=== PATIENT | female | born 1950 | race Caucasian/White ===

== ENCOUNTER → 2018-07-29 | Outpatient (CLI) | payer MEDICARE ==
[~2018-07-29] MED LIST: AMT50T; METR500T PO; PROP1TAB77 PO; SULF1TAB35 PO
--- NOTE | 2018-07-29 12:12 | Diagnostic Imaging Report ---
INDICATION: Routine screening. Comparison is made with prior mammogram from 11/12/2014. 2-D and 3-D bilateral screening mammography was performed with CAD. Scattered fibroglandular densities are identified bilaterally. The parenchymal pattern is stable. No dominant mass or malignant appearing microcalcifications are seen. There are benign calcifications present. The axillae are unremarkable. IMPRESSION: BI-RADS category 2 No mammographic features suspicious for malignancy are identified. ACR BI-RADS Category 2: Benign findings. Result letter will be mailed to the patient. Note: At least 10% of breast cancer is not imaged by mammography. Dictated by: Dictated on workstation # [id number]
== END ==
LOC: RAD 09:34
PROVIDERS: ATTEND Internal Medicine
DX: Z12.31 Encounter for screening mammogram for malignant neoplasm of breast (principal)
CPT/HCPCS: 77067

== ENCOUNTER 2018-08-15 14:18 | Emergency (ER) | payer MEDICARE, OTHER ==
[~2018-08-15] VITALS: Ht 167.6 cm; Wt 85.3 kg
--- OUTSIDE RECORDS SUMMARY | 2018-08-15 14:24 | XMS REPORT | Continuity of Care Document ---
Demographics Preferred Language Unknown Marital Status Unknown Yazidism Affiliation Unknown Race Unknown Ethnic Group Unknown Author Author [facility] Address Unknown Phone Unavailable Allergies Active Description Code Type Severity Reaction Onset Reported/Identified Relationship to Patient Clinical Status Yes No Known Drug Allergies [id number] Drug Allergy Mild N/A 11/13/2009 Medications There is no data. Problems Date Dx Coded Attending Type Code Diagnosis Diagnosed By 11/13/2009 Ot 558.9 11/13/2009 Ot 599.0 11/13/2009 Ot 789.09 06/14/2012 V06.1 TDAP DX 06/14/2012 V06.1 TDAP DX 07/05/2012 V05.8 ZOSTAVAX DX 07/05/2012 V05.8 ZOSTAVAX DX 09/27/2012 079.99 VIRAL SYNDROME 09/27/2012 786.2 COUGH 09/03/2014 ALEXANDRA LINDSEY ROBERT Brown Ot V58.61 09/03/2014 ALEXANDRA DO ROBERT Brown Ot V58.83 11/30/2014 Ot V76.12 02/07/2015 Ot V76.12 02/07/2015 Ot 780.60 02/07/2015 Ot 786.50 02/07/2015 Ot 733.90 02/07/2015 Ot V58.69 02/07/2015 ALEXANDRA DO, ROBERT Brown Ot V58.61 02/07/2015 ALEXANDRA DO, ROBERT Brown Ot V58.83 02/07/2015 Ot V76.12 02/07/2015 Ot V76.12 02/07/2015 Ot 780.60 02/07/2015 Ot 786.50 02/07/2015 Ot 733.90 02/07/2015 Ot V58.69 02/07/2015 ALEXANDRA DO, ROBERT Brown Ot V58.61 02/07/2015 ALEXANDRA DO, ROBERT Brown Ot V58.83 02/07/2015 Ot V76.12 02/22/2015 KRYS EASON Ot 433.10 02/22/2015 KRYS EASONP Ot 433.30 09/11/2015 Ot V76.12 09/11/2015 Ot 780.60 09/11/2015 Ot 786.50 09/11/2015 Ot 733.90 09/11/2015 Ot V58.69 09/11/2015 ROBERT MORRIS DO Ot V58.61 09/11/2015 ROBERT MORRIS DO Ot V58.83 09/11/2015 Ot V76.12 09/11/2015 KRYS EASON PRESSER HAND Ot 433.10 09/11/2015 KRYS EASON PRESSER HAND Ot 433.30 10/01/2015 ROBERT MORRIS DO Ot Z47.1 10/01/2015 ROBERT MORRIS DO Ot Z96.651 07/29/2018 ROBERT MORRIS DO Ot V58.61 ANTICOAGULANTS,LT,CURRENT USE 07/29/2018 ROBERT MORRIS DO Ot V58.83 ENCOUNTER FOR THERAPEUTIC DRUG MONITORIN 07/29/2018 Ot V76.12 OTH SCREEN MAMMO-MALIGN NEOPLASM OF GRETCHEN 07/29/2018 KRYS EASON PRESSER HAND Ot 433.10 CAROTID ARTERY OCCLUSION W O CEREBRAL IN 07/29/2018 KRYS EASON PRESSER HAND Ot 433.30 MULT BILTRAL ARTERY OCCLUSION WO CEREBRA 07/29/2018 ALEXANDRA LINDSEY ROBERT Brown Ot Z47.1 AFTERCARE FOLLOWING JOINT REPLACEMENT DAVIS 07/29/2018 ALEXANDRA LINDSEY ROBERT Brown Ot Z96.651 PRESENCE OF RIGHT ARTIFICIAL KNEE JOINT 07/29/2018 ZOILA EASON DO Ot Z12.31 ENCNTR SCREEN MAMMOGRAM FOR MALIGNANT NE 08/01/2018 ZOILA EASON DO Ot Z12.31 ENCNTR SCREEN MAMMOGRAM FOR MALIGNANT NE 08/01/2018 ZOILA EASON DO Ot Z12.31 ENCNTR SCREEN MAMMOGRAM FOR MALIGNANT NE 08/01/2018 ZOILA EASON DO Ot Z12.31 ENCNTR SCREEN MAMMOGRAM FOR MALIGNANT NE Procedures Code Description [place] [address] [facility] ([facility]HOUSE) 09/27/2012 Results There is no data. Encounters ACCT No. Visit Date/Time Discharge Status Pt. Type Provider Facility Loc./Unit Complaint [id number] 09/27/2012 08:16:00 09/27/2012 23:59:59 [facility] Outpatient [id number] 07/05/2012 08:42:00 07/05/2012 23:59:59 [facility] Outpatient [id number] 07/29/2018 09:34:00 07/29/2018 23:59:59 CLS Outpatient ZOILA EASON DO Via [facility] RAD SCREENING [id number] 09/11/2015 11:38:00 09/11/2015 23:59:59 CLS Outpatient ALEXANDRA LINDSEYROBERT [facility] S/P RIGHT TKA [id number] 02/07/2015 14:13:00 02/07/2015 23:59:59 CLS Outpatient KRYS EASON [facility] RAD DIZZINESS [id number] 08/09/2014 14:00:00 08/09/2014 23:59:59 CLS Outpatient ALEXANDRA LINDSEY Kevin [facility] TKR, ANTICOAG THERAPY [id number] 11/12/2014 11:36:00 Document Registration [id number] 04/08/2012 11:22:00 Document Registration [id number] 07/08/2011 17:05:00 Document Registration [id number] 05/13/2011 15:36:00 Document Registration [id number] 11/13/2009 17:57:00 Document Registration [email or web address] 02/08/2015 02:01:14 ACT Document Registration
[2018-08-15] MEDS ORDERED: AMIT50TA3 (14:34)
[2018-08-15] MEDS ORDERED: ZOLP5TAB7 (14:34)
[2018-08-15] MEDS ORDERED: CNC1KV (14:34)
[2018-08-15] MEDS ORDERED: TRIA1CAP4 (14:34)
[2018-08-15] MEDS ORDERED: ALPR0.254 (14:34)
[2018-08-15] MEDS ORDERED: ORPHENADRINE 60 MG/2 ML (NORFLEX) AMP IM ONE (14:45)
[2018-08-15] MEDS ORDERED: KETOROLAC 60 MG/2 ML VIAL IM ONE (14:45)
--- NOTE | 2018-08-15 15:13 | Diagnostic Imaging Report ---
PROCEDURE: CT lumbar spine without contrast. TECHNIQUE: Multiple contiguous axial images were obtained through the lumbar spine without the use of intravenous contrast. Sagittal and coronal reformations were then performed. INDICATION: Recent fall. Severe lower back pain. COMPARISON: None. FINDINGS: For the purposes of this exam, last well-formed disc space is denoted the L5-S1 level. Evaluation of the static alignment demonstrates mild grade 1 retrolisthesis at L3-L4 and mild grade 1 anterolisthesis at L4-L5. There is no evidence of jumped facets. Note is also made of mild S-shaped scoliotic deformity of the lumbar spine. Evaluation of the lumbar vertebral body heights demonstrates chronic appearing height loss at L5. Otherwise, lumbar vertebral body heights are maintained. There is, however, acute appearing compression fracture involving the superior endplate of T12. This results in approximately 30% vertebral body height loss. There is mild bulging of the posterior vertebral body wall, superiorly. This results in minimal narrowing of the spinal canal. Note is also made of sclerotic appearance to the anteroinferior corner of T11. This, however, is likely on a degenerative basis. There are multilevel degenerative changes consisting of intervertebral disc height loss with anterior and posterior disc bulge as well as multilevel facet arthropathy and ligamentum flavum laxity. Evaluation of the spinal canal contents is suboptimal given CT modality and lack of intrathecal contrast, but there does appear to be moderate or possibly yymcdbxp-jr-idpwxt spinal canal stenosis at the L4-L5 level and probable moderate stenosis at L3-L4. Evaluation of the pre- and para-vertebral soft tissue structures is unremarkable. Note is made of calcified aortic and arterial atherosclerosis. IMPRESSION: 1. Acute compression fracture involving the superior endplate of T12. Patient may be a candidate for kyphoplasty. 2. Multilevel degenerative changes of the lumbar spine, greatest at the L3-L4 and L4-L5 levels as described above. Dictated by: Dictated on workstation # [id number]
[2018-08-15] MEDS ORDERED: CYCL10TA9 PO (15:37)
[2018-08-15] MEDS ORDERED: ACHD5005 PO (15:37)
--- NOTE | 2018-08-15 15:37 | ED Back Pain ---
General Chief Complaint: Back Problems Stated Complaint: BACK PAIN Nursing Triage Note: PT PRESENTS TO ER WITH COMPLAINT OF LOW BACK PAIN. STATES SHE MISSED A STEP AND FELL LAST WEDNESDAY. Nursing Sepsis Screen: No Definite Risk Source of Information: Patient Exam Limitations: No Limitations History of Present Illness Date Seen by Provider: Aug 15, 2018 Time Seen by Provider: 14:30 Initial Comments Patient is a 67-year-old female who presents to the emergency room with complaints of low back pain after a fall on 08/11/18. She reports that she missed a bottom step causing her to fall, she has had some low back pain ever since. She denies any loss of bowel or bladder, numbness or tingling that radiates to her legs, denies hitting her head, neck or denies any other injuries from the fall. Location: Lumbar Spine Timing/Duration: 3-4 Days Pain/Injury Location: Back Allergies and Home Medications Allergies Coded Allergies: No Known Drug Allergies (Unverified Allergy, Mild, 11/13/09) Past Ucndkwi-Rnmxmi-Fnxitc Hx Patient Social History Alcohol Use: Denies Use Recreational Drug Use: No Smoking Status: Current Everyday Smoker Type Used: Cigarettes Recent Foreign Travel: No Contact w/Someone Who Travel: No Recent Infectious Disease Expo: No Recent Hopitalizations: No Immunizations Up To Date Tetanus Booster (TDap): Less than 5yrs PED Vaccines UTD: Yes Seasonal Allergies Seasonal Allergies: No Past Medical History Surgeries: Yes Hysterectomy, Orthopedic Respiratory: No Cardiac: No 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 oz. 85.798402zl; BMI Method:Stated Progress/Results/Core Measures Results/Orders My Orders Orders - HUNTER WHITE Ct Lumbar Spine Wo (08/15/18 14:39) Ketorolac Injection (Toradol Injection) (08/15/18 14:45) Orphenadrine Injection (Norflex Injectio (08/15/18 14:45) Medications Given in ED Current Medications Medications Dose Ordered Sig/Keenan Route Start Time Stop Time Status Last Admin Dose Admin Ketorolac Tromethamine 60 mg ONCE ONCE IM 08/15/18 14:45 08/15/18 14:46 DC 08/15/18 14:49 60 MG Orphenadrine Citrate 60 mg ONCE ONCE IM 08/15/18 14:45 08/15/18 14:46 DC 08/15/18 14:49 60 MG Vital Signs/I&O 08/15/18 14:27 Temp 97.0 Pulse 87 Resp 20 B/P (MAP) 143/76 (98) Pulse Ox 97 Blood Pressure Mean: 98 Departure Impression Primary Impression: Compression fracture of T12 vertebra Disposition: HOME, SELF-CARE Condition: Stable/Unchanged Departure-Patient Inst. Decision time for Depature: 15:33 Referrals: NAMRATA PATEL WILLIAM J DO (PCP/Family) Primary Care Physician Patient Instructions: Vertebral Compression Fracture (DC) Add. Discharge Instructions: Take medications as directed. Follow-up with your primary care provider within 1 week for recheck. Call Dr. Patel's office today for an appointment time for further evaluation of you compression fracture. Return back to the emergency room for any worsening symptoms or concerns as needed. All discharge instructions reviewed with patient and/or family. Voiced understanding. Scripts Hydrocodone Bit/Acetaminophen (Hydrocodone/Acetaminophen 5/325mg Tablet) 1 Tab Tab 1 EACH PO Q4-6HR PRN for PAIN-MODERATE MDD 10, #20 TAB Prov: HUNTER WHITE 08/15/18 Cyclobenzaprine HCl (Cyclobenzaprine HCl) 10 Mg Tablet 10 MG PO Q8H PRN for SPASMS, #14 TAB Prov: HUNTER WHITE 08/15/18 HUNTER WHITE Aug 15, 2018 15:37
[2018-08-15 15:44] VITALS: BP 143/76
== END 2018-08-15 15:44 | disposition home or self-care (01) ==
LOC: EDUNIT# 14:18 → ER 14:20
DX: S22.080A Wedge compression fracture of T11-T12 vertebra, initial encounter for closed fracture (principal); K21.9 Gastro-esophageal reflux disease without esophagitis; F17.210 Nicotine dependence, cigarettes, uncomplicated; Z90.710 Acquired absence of both cervix and uterus; W10.8XXA Fall (on) (from) other stairs and steps, initial encounter
CPT/HCPCS: 72131

== ENCOUNTER → 2018-09-22 | Outpatient (CLI) | payer MEDICARE, OTHER ==
[~2018-09-22] MED LIST changes: +ACHD5005 PO; +ALPR0.254; +AMIT50TA3; +CNC1KV; +CYCL10TA9 PO; +TRIA1CAP4; +ZOLP5TAB7
--- NOTE | 2018-09-22 16:10 | Diagnostic Imaging Report ---
INDICATION: Osteopenia COMPARISON: 2011 FINDINGS: AP Spine L1-L4: [BMD (g/cm2): 0.945] [T-Score: -2.1] [Z-Score: -1.2] [BMD Previous: 1.085] [BMD % Change: -12.9] LT Hip Neck: [BMD (g/cm2): 0.814] [T-Score: -1.6] [Z-Score: -0.5] LT Hip Total: [BMD (g/cm2):0.815] [T-Score:-1.5] [Z-Score: -0.7] [BMD Previous: .884] [BMD % Change: NA] RT Hip Neck: [BMD (g/cm2):0.884] [T-Score:-1.1] [Z-Score:0.0] RT Hip Total: [BMD (g/cm2):0.839] [T-score:-1.3] [Z-Score:-0.5] [BMD Previous:.890] [BMD % Change:NA] *Indicates significant change from prior examination based on 95% confidence level. World Health Organization criteria for BMD interpretation classify patients as Normal (T-score at or above -1.0), Osteopenic (T-score between -1.0 and -2.5) or Osteoporotic (T-score at or below -2.5). LIMITATIONS AND MODIFICATION: None. FRACTURE RISK (FRAX SCORE): The ten year probability of (%): Major Osteoporotic Fracture: [16] Hip Fracture: [3.3] IMPRESSION: 1. Osteopenia (Low bone mass). 2. Bone Mineral density has decreased by a statistically significant amount, as detailed above. 3. See below National Osteoporosis Foundation guidelines on when to potentially initiate pharmacologic therapy. Based on the National Osteoporosis Foundation Guidelines, pharmacologic treatment should be initiated in any of the following, unless clinical conditions suggest otherwise: * Any patient with prior fragility fracture of the hip or vertebrae. A spine fracture indicates 5X risk for subsequent spine fracture and 2X risk for subsequent hip fracture. * Osteoporosis (T-score <-2.5). * Postmenopausal women and men age 50 and older with low bone mass/osteopenia (T-score between -1.0 and -2.5) by DXA and 10-year major osteoporotic fracture greater than 20% or a 10-year probability of hip fracture greater than 3%. These fracture risks are supplied above in the FRAX score, if applicable. * Clinician judgement and/or patient preferences may indicate treatment for people with 10-year fracture probabilities above or below these levels. Dictated by: Dictated on workstation # [id number]
== END ==
LOC: RAD 09:56
PROVIDERS: ATTEND Internal Medicine
DX: M81.0 Age-related osteoporosis without current pathological fracture (principal); M85.80 Other specified disorders of bone density and structure, unspecified site
CPT/HCPCS: 77080

== ENCOUNTER 2018-10-26 13:08 | Outpatient (CLI) | payer MEDICARE, OTHER ==
[~2018-10-26] VITALS: Ht 167.6 cm; Wt 83.9 kg
[2018-10-26 13:15] VITALS: BP 149/78
[2018-10-26] MEDS ORDERED: ZOLEDRONATE (NON-FORMULARY) 100 ML IV ONE (13:30)
== END 2018-10-26 14:30 | disposition home or self-care (01) ==
LOC: RAD 13:08 → SDC 14:30
PROVIDERS: ATTEND Internal Medicine
DX: M81.0 Age-related osteoporosis without current pathological fracture (principal)

== ENCOUNTER → 2020-11-08 | Outpatient (CLI) | payer MEDICARE, OTHER ==
[~2020-11-08] MED LIST changes: +ALPR.25T; -ALPR0.254
--- NOTE | 2020-11-11 11:11 | Diagnostic Imaging Report ---
INDICATION: Routine screening. Comparison is made with prior mammogram 07/29/2018 and 11/12/2014. 2-D and 3-D bilateral screening mammography was performed with CAD. Both breast are heterogeneously dense, limiting the sensitivity of mammography. Parenchymal pattern is stable. No mass or malignant appearing microcalcifications are seen. Axillae are unremarkable. IMPRESSION: BI-RADS Category 2 No mammographic features suspicious for malignancy are identified. ACR BI-RADS Category 2: Benign findings. Result letter will be mailed to the patient. Note: At least 10% of breast cancer is not imaged by mammography. Dictated by: Dictated on workstation # [id number]
== END ==
LOC: RAD 15:15
PROVIDERS: ATTEND Internal Medicine
DX: Z12.31 Encounter for screening mammogram for malignant neoplasm of breast (principal)
CPT/HCPCS: 77063; 77067

== ENCOUNTER 2021-03-21 19:28 | Emergency (ER) | payer MEDICARE, OTHER ==
[~2021-03-21] VITALS: Ht 167.7 cm; Wt 70.0 kg
[2021-03-21] MEDS ORDERED: fentaNYL INJ 100 MCG/2 ML AMP IVP STA ×2 (19:48→21:56)
[2021-03-21 20:05] LABS: BASOPHILS % (AUTO) 0 % (0-10); EOSINOPHILS % (AUTO) 0 % (0-10); HEMATOCRIT 35 % (35-52); HEMOGLOBIN 12.3 g/dL (11.5-16.0); LYMPHOCYTES # (AUTO) 1.6 10^3/uL (1.0-4.0); LYMPHOCYTES % (AUTO) 14 % (12-44); MEAN CORPUSCULAR HEMOGLOBIN 31 pg (25-34); MEAN CORPUSCULAR HGB CONC 35 g/dL (32-36); MEAN CORPUSCULAR VOLUME 87 fL (80-99); MONOCYTES # (AUTO) 0.7 10^3/uL (0.0-1.0); MONOCYTES % (AUTO) 7 % (0-12); NEUTROPHILS # (AUTO) 8.7 10^3/uL (1.8-7.8); NEUTROPHILS % (AUTO) 78 % (42-75); PLATELET COUNT 278 10^3/uL (130-400); WHITE BLOOD COUNT 11.1 10^3/uL (4.3-11.0)
[2021-03-21 20:16] LABS: PROTHROMBIN TIME PATIENT 13.4 SEC (12.2-14.7)
[2021-03-21 20:22] LABS: ALBUMIN 4.2 GM/DL (3.2-4.5); BILIRUBIN,TOTAL 0.7 MG/DL (0.1-1.0); CALCIUM 8.9 MG/DL (8.5-10.1); CREATININE SERUM 1.1 MG/DL (0.60-1.30); POTASSIUM 3.4 MMOL/L (3.6-5.0); TOTAL PROTEIN 6.9 GM/DL (6.4-8.2)
--- NOTE | 2021-03-21 21:21 | Diagnostic Imaging Report ---
EXAMINATION: Right tibia and fibular radiographs, 2 views, 4 images. COMPARISON: None. HISTORY: 70-year-old female, fall. Leg pain. FINDINGS: There is a displaced right distal femoral fracture in the region of the femoral component of the right total knee prosthesis. There is a knee joint effusion with fat/fluid level consistent with an intra-articular fracture. The patella appears normally positioned. There is no identified acute fracture specifically involving the right tibia or fibula. IMPRESSION: 1. Displaced distal femoral fracture centered in the region of the knee prosthesis. There is a large knee joint effusion with fat/fluid level consistent with intra-articular fracture. 2. No identified acute fracture specifically of the right tibia or fibula. Dictated by: Dictated on workstation # [id number]
--- NOTE | 2021-03-21 21:21 | Diagnostic Imaging Report ---
EXAMINATION: Chest radiograph, portable AP view. DATE: 03/21/2021 8:42 PM INDICATION: 70-year-old female, fall. Chest pain. COMPARISON: None. FINDINGS: Heart size and mediastinal contours are unremarkable. There is no identified pneumothorax. There is no large pleural effusion. There is no identified focal airspace consolidation. There is no identified significantly displaced rib fracture. There are prior kyphoplasty changes of T12. IMPRESSION: No identified acute cardiopulmonary abnormality. Dictated by: Dictated on workstation # [id number]
--- NOTE | 2021-03-21 21:22 | Diagnostic Imaging Report ---
EXAMINATION: Right knee radiographs, 3 views. COMPARISON: None. HISTORY: 70-year-old female, knee pain. Fall. FINDINGS: There is a displaced right distal femoral fracture involving at least the metaphysis centered in the region of the femoral component of the knee prosthesis. There is a large right knee joint effusion with fat/fluid level consistent with an intra-articular fracture. The hardware itself appears intact. The patella appears unremarkable in position. IMPRESSION: 1. Displaced distal femoral fracture centered in the region of the femoral component of the knee prosthesis with involvement of the metaphysis and findings consistent with intra-articular fracture extension given the presence of a large right knee joint effusion with fat/fluid level. Dictated by: Dictated on workstation # [id number]
--- NOTE | 2021-03-21 21:23 | Diagnostic Imaging Report ---
EXAMINATION: Right femur, 2 views, 4 images. COMPARISON: None. HISTORY: 70-year-old female, right femur pain. Fall. FINDINGS: The right hip is not dislocated. There is no joint space loss of the right hip, osteophyte formation, or subchondral cystic change. There is a displaced right femoral fracture involving at least the distal femoral metaphysis with evidence of intra-articular fracture extension manifested by a large right knee joint effusion with a fat fluid level. There is no identified more proximally located fracture of the right femur. IMPRESSION: 1. Displaced right femoral fracture centered in the region of the femoral component of the knee prosthesis with evidence of intra-articular fracture extension manifested by a large knee joint effusion with fat/fluid level. 2. No identified more proximally located fracture of the right femur. Dictated by: Dictated on workstation # [id number]
--- NOTE | 2021-03-21 21:24 | Diagnostic Imaging Report ---
EXAMINATION: Pelvis, single view. COMPARISON: None. HISTORY: 70-year-old female, pelvic pain. FINDINGS: The pubic symphysis and sacroiliac joints are normally aligned bilaterally. The hips are not obviously dislocated. There is no identified acute fracture. There are degenerative changes of the lower lumbar spine. IMPRESSION: No identified acute bony abnormality of the pelvis. Dictated by: Dictated on workstation # [id number]
[2021-03-21] MEDS ORDERED: HYDR-34 PO (22:10)
--- NOTE | 2021-03-21 22:10 | ED Lower Extremity ---
General Chief Complaint: Lower Extremity Stated Complaint: FALL/R LEG INJ/PREV KNEE REPLACEMENT Nursing Triage Note: Pt arrival by wheelchair with complaint of R. leg pain secondary to fall. Pt has deformity to lower right leg just below knee, and pain to right femur and pelvis. Source: patient History of Present Illness Date Seen by Provider: Mar 21, 2021 Time Seen by Provider: 19:42 Initial Comments PT ARRIVES VIA POV FROM HOME, NEEDS WHEELCHAIR ON ARRIVAL PT STATES JUST PRIOR TO ARRIVAL, SHE WAS WALKING IN HER YARD AND HER DOG RAN INTO HER RIGHT KNEE AND SHE FELL BACKWARDS, LANDING ON HER BUTTOCKS ON THE GROUND C/O SEVERE RIGHT KNEE PAIN--STATES THIS IS WHERE THE DOG RAN INTO HER DENIES BACK OR BUTTOCKS PAIN DENIES HIP PAIN DID NOT HIT HEAD AND NO LOSS OF CONSCIOUSNESS NO NECK PAIN NO PARESTHESIAS OR MOTOR DEFICITS DENIES ANY OTHER INJURIES OR AREAS OF PAIN PT HAS HAD PRIOR RIGHT TOTAL KNEE REPLACEMENT BY DR. MORRIS PCP: DR. EASON ORTHOPEDIC SURGEON: DR. MORRIS Allergies and Home Medications Allergies Coded Allergies: No Known Drug Allergies (Unverified , 11/13/09) Home Medications Cyclobenzaprine HCl 10 Mg Tablet, 10 MG PO Q8H PRN for SPASMS Prescribed by: HUNTER WHITE on 08/15/18 1537 Hydrocodone Bit/Acetaminophen 1 Tab Tab, 1 EACH PO Q4-6HR PRN for PAIN-MODERATE Prescribed by: HUNTER WHITE on 08/15/18 1537 Hydrocodone Bit/Acetaminophen 1 Ea Tablet, 1-2 EA PO Q4-6 PRN for PAIN Prescribed by: LORELEI CHARLES on 03/21/21 2210 Patient Home Medication List Home Medication List Reviewed: Yes Review of Systems Constitutional: no symptoms reported Respiratory: no symptoms reported Cardiovascular: no symptoms reported Gastrointestinal: no symptoms reported Genitourinary: no symptoms reported Musculoskeletal: see HPI Skin: no symptoms reported Psychiatric/Neurological: No Symptoms Reported Past Kenkpxe-Gdfbln-Wwdzhe Hx Patient Social History Tobacco Use?: Yes (SMOKES 2 PPD) Tobacco type used: Cigarettes Smoking Status: Current Everyday Smoker Use of E-Cig and/or Vaping dev: No Substance use?: No Alcohol Use?: No Pt feels they are or have been: No Immunizations Up To Date Tetanus Booster (TDap): Less than 5yrs PED Vaccines UTD: Yes Influenza Vaccine Up-to-Date: No; Not Current Second COVID19 Vaccination Luis: 10/20/20 COVID19 Vaccine Pharm Spec: Lydia Seasonal Allergies Seasonal Allergies: No Past Medical History Surgery/Hospitalization HX: BILATERAL TOTAL KNEE REPLACEMENTS HYSTERECTOMY KYPHOPLASTIES Surgeries: Yes Hysterectomy, Joint Replacement, Orthopedic Respiratory: No Cardiac: Yes Chronic Edema/Swelling 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 0.0oz. [id number]; 24.00 BMI Method:Stated General Appearance: WD/WN Neck: non-tender, full range of motion, normal inspection Cardiovascular: normal peripheral pulses, regular rate, rhythm, no murmur Respiratory: chest non-tender, normal breath sounds, no respiratory distress, no accessory muscle use Gastrointestinal: normal bowel sounds, non tender, soft Hips: bilateral hip non-tender Legs: left leg non-tender, left leg normal inspection, left leg normal range of motion, left leg no evidence of injury; right leg other (TENDERNESS FROM RIGHT MID FEMUR AREA, DOWN TO RIGHT MID TIB-FIB AREA, WITH MARKED TENDERNESS TO RIGHT KNEE) Knees: left knee normal inspection; right knee other (SIGNIFICANT SWELLING TO KNEE, UNABLE TO MOVE KNEE DUE TO PAIN) Ankles: bilateral ankle non-tender, bilateral ankle normal inspection Feet: bilateral foot non-tender, bilateral foot normal inspection, bilateral foot normal range of motion, bilateral foot other (STRONG PEDAL PULSES BILATERALLY; TRACE PEDAL EDEMA BILATERALLY; DISTAL SENSORY/MOTOR/VASCULAR INTACT) Neurologic/Tendon: normal sensation, normal motor functions, normal tendon functions Neurologic/Psychiatric: mechanical adjuster II-XII nml as tested, no motor/sensory deficits, alert, oriented x 3 Skin: normal color, warm/dry Procedures/Interventions Splinting and Joint Reduction : Casa wrap: Yes Immobilizers: Flexion Limit Knee Long Ordered: Other (PT HAS A WALKER AT HOME) Progress/Results/Core Measures Results/Orders Lab Results Laboratory Tests Test 03/21/21 19:58 03/21/21 21:45 Range/Units White Blood Count 11.1 H 4.3-11.0 10^3/uL Red Blood Count 4.01 3.80-5.11 10^6/uL Hemoglobin 12.3 11.5-16.0 g/dL Hematocrit 35 35-52 % Mean Corpuscular Volume 87 80-99 fL Mean Corpuscular Hemoglobin 31 25-34 pg Mean Corpuscular Hemoglobin Concent 35 32-36 g/dL Red Cell Distribution Width 12.8 10.0-14.5 % Platelet Count 278 130-400 10^3/uL Mean Platelet Volume 9.0 9.0-12.2 fL Immature Granulocyte % (Auto) 1 % Neutrophils (%) (Auto) 78 H 42-75 % Lymphocytes (%) (Auto) 14 12-44 % Monocytes (%) (Auto) 7 0-12 % Eosinophils (%) (Auto) 0 0-10 % Basophils (%) (Auto) 0 0-10 % Neutrophils # (Auto) 8.7 H 1.8-7.8 10^3/uL Lymphocytes # (Auto) 1.6 1.0-4.0 10^3/uL Monocytes # (Auto) 0.7 0.0-1.0 10^3/uL Eosinophils # (Auto) 0.0 0.0-0.3 10^3/uL Basophils # (Auto) 0.0 0.0-0.1 10^3/uL Immature Granulocyte # (Auto) 0.1 0.0-0.1 10^3/uL Prothrombin Time 13.4 12.2-14.7 SEC INR Comment 1.0 0.8-1.4 Activated Partial Thromboplast Time 27 24-35 SEC Sodium Level 127 L 135-145 MMOL/L Potassium Level 3.4 L 3.6-5.0 MMOL/L Chloride Level 92 L 98-107 MMOL/L Carbon Dioxide Level 22 21-32 MMOL/L Anion Gap 13 5-14 MMOL/L Blood Urea Nitrogen 20 H 7-18 MG/DL Creatinine 1.10 0.60-1.30 MG/DL Estimat Glomerular Filtration Rate 49 BUN/Creatinine Ratio 18 Glucose Level 125 H 70-105 MG/DL Calcium Level 8.9 8.5-10.1 MG/DL Corrected Calcium 8.7 8.5-10.1 MG/DL Total Bilirubin 0.7 0.1-1.0 MG/DL Aspartate Amino Transf (AST/SGOT) 22 5-34 U/L Alanine Aminotransferase (ALT/SGPT) 32 0-55 U/L Alkaline Phosphatase 83 40-136 U/L Total Protein 6.9 6.4-8.2 GM/DL Albumin 4.2 3.2-4.5 GM/DL SARS-CoV-2 RNA (RT-PCR) Not Detected Not Detecte My Orders Orders - LORELEI CHARLES DO Ed Iv/Invasive Line Start (03/21/21 19:48) Cbc With Automated Diff (03/21/21 19:48) Comprehensive Metabolic Panel (03/21/21 19:48) Protime With Inr (03/21/21 19:48) Partial Thromboplastin Time (03/21/21 19:48) Fentanyl Inj (Sublimaze Injection) (03/21/21 19:48) Chest 1 View, Ap/Pa Only (03/21/21 19:48) Femur, Right, 2 Views (03/21/21 19:48) Tibia/Fibula, Right, 2 Views (03/21/21 19:48) Knee, Right, 3 Views (03/21/21 19:48) Pelvis (03/21/21 19:48) Catheter(Urinary) Insert & Ass 03,15 (03/21/21 21:31) Covid 19 Inhouse Test (03/21/21 21:31) Casa Bandage (03/21/21 21:56) Walker (03/21/21 21:56) Knee Immobilizer (03/21/21 21:56) Flexion Limit Knee (03/21/21 21:56) Fentanyl Inj (Sublimaze Injection) (03/21/21 21:56) Rx-Hydrocodone/Apap 5-325 Mg (Rx-Vicodin (03/21/21 22:15) Medications Given in ED Current Medications Medications Dose Ordered Sig/Keenan Route Start Time Stop Time Status Last Admin Dose Admin Acetaminophen/ Hydrocodone Bitart 1 ea Q4H PRN PO 03/21/21 22:15 03/21/21 23:40 DC 03/21/21 22:38 1 EA Vital Signs/I&O 03/21/21 03/21/21 20:02 23:38 Temp 36.7 Pulse 82 76 Resp 20 18 B/P (MAP) 140/75 (96) 156/91 Pulse Ox 97 97 O2 Delivery Room Air Room Air Blood Pressure Mean: 96 Diagnostic Imaging Comments XRAYS--ALL PER RADIOLOGIST REPORTS AT 2122 PELVIS-FINDINGS: The pubic symphysis and sacroiliac joints are normally aligned bilaterally. The hips are not obviously dislocated. There is no identified acute fracture. There are degenerative changes of the lower lumbar spine. IMPRESSION: No identified acute bony abnormality of the pelvis. RIGHT FEMUR-- IMPRESSION: 1. Displaced right femoral fracture centered in the region of the femoral component of the knee prosthesis with evidence of intra-articular fracture extension manifested by a large knee joint effusion with fat/fluid level. 2. No identified more proximally located fracture of the right femur. RIGHT KNEE--IMPRESSION: 1. Displaced distal femoral fracture centered in the region of the femoral component of the knee prosthesis with involvement of the metaphysis and findings consistent with intra-articular fracture extension given the presence of a large right knee joint effusion with fat/fluid level. RIGHT TIB-FIB-- IMPRESSION: 1. Displaced distal femoral fracture centered in the region of the knee prosthesis. There is a large knee joint effusion with fat/fluid level consistent with intra-articular fracture. 2. No identified acute fracture specifically of the right tibia or fibula. CXR--FINDINGS: Heart size and mediastinal contours are unremarkable. There is no identified pneumothorax. There is no large pleural effusion. There is no identified focal airspace consolidation. There is no identified significantly displaced rib fracture. There are prior kyphoplasty changes of T12. IMPRESSION: No identified acute cardiopulmonary abnormality. Reviewed: Reviewed by [facility] Departure Communication (Admissions) 2122--CALLED [facility] ORTHOPED[facility] SURGEON. THEIR FACILITY IS ON FULL DIVERSION 2126--SPOKE WITH DR. RANDLE, ASKS THAT PICTURES OF XRAYS BE TEXTED TO HIM AND HE WILL CALL BACK 2150--SPOKE WITH DR. RANDLE, HE ADVISES TO PLACE PT IN HINGED KNEE BRACE, WALKER WITH COMPLETE NON-WEIGHT BEARING, AND PT CAN FOLLOW UP WITH DR. MORRIS ON WEDNESDAY. PT IS AGREEABLE TO THIS PLAN Impression Primary Impression: CLOSED RIGHT DISTAL FEMUR FRACTURE Additional Impression: History of total right knee replacement (TKR) Disposition: HOME, SELF-CARE Condition: Stable Departure-Patient Inst. Decision time for Depature: 21:55 Referrals: ROBERT MORRIS WILLIAM J DO (PCP/Family) Primary Care Physician Patient Instructions: Femur Fracture (DC), How to Use a Walker, Knee Immobilizer (DC) Add. Discharge Instructions: ICE TO AREA AT 20 MINUTE INTERVALS ELEVATE LEG MUCH As POSSIBLE CASA WRAP AND KNEE IMMOBILIZER AT ALL TIMES USE WALKER AT ALL TIMES--NO WEIGHT BEARING AT ANY TIME FOLLOW UP WITH DR. MORRIS ON WEDNESDAY--CALL WEDNESDAY MORNING TO SCHEDULE APPOINTMENT TIME All discharge instructions reviewed with patient and/or family. Voiced understanding. Scripts Hydrocodone Bit/Acetaminophen (HYDROcodone/APAP 7.5/325 TAB) 1 Ea Tablet 1-2 EA PO Q4-6 PRN for PAIN, #20 TAB Prov: LORELEI CHARLES DO 03/21/21 LORELEI CHARLES DO Mar 21, 2021 22:10
[2021-03-21 23:38] VITALS: BP 156/91
[2021-03-22] MEDS ORDERED: ACHD5005 PO (10:14)
== END 2021-03-21 22:43 | disposition home or self-care (01) ==
LOC: EDUNIT# 19:28 → ER 19:35
DX: S72.491A Other fracture of lower end of right femur, initial encounter for closed fracture (principal); G89.29 Other chronic pain; M54.9 Dorsalgia, unspecified; F17.210 Nicotine dependence, cigarettes, uncomplicated; Z96.651 Presence of right artificial knee joint; Z20.822 Contact with and (suspected) exposure to COVID-19; Z79.891 Long term (current) use of opiate analgesic; Z79.899 Other long term (current) drug therapy; W18.30XA Fall on same level, unspecified, initial encounter
CPT/HCPCS: 36415; 71045; 72170; 73552; 73562; 73590; 80053; 85025; 85610; 85730; 87636; 96374; 96376

== ENCOUNTER → 2021-04-29 | Outpatient (CLI) | payer MEDICARE, OTHER ==
[~2021-04-29] MED LIST changes: +HYDR-34 PO
--- NOTE | 2021-04-29 12:44 | Diagnostic Imaging Report ---
INDICATION: 70-year-old asymptomatic postmenopausal female. COMPARISON: 09/22/2018 FINDINGS: AP Spine L1-L4: [BMD (g/cm2): 1.019] [T-Score: -1.5] [Z-Score: -0.2] [BMD Previous: 0.945] [BMD % Change: 7.8] LT Hip Neck: [BMD (g/cm2): 0.868] [T-Score: -1.2] [Z-Score: 0.3] LT Hip Total: [BMD (g/cm2):0.834] [T-Score:-1.4] [Z-Score: -0.1] [BMD Previous: 0.815] [BMD % Change: 2.3] RT Hip Neck: [BMD (g/cm2):0.882] [T-Score:-1.1] [Z-Score:0.4] RT Hip Total: [BMD (g/cm2):0.842] [T-score:-1.3] [Z-Score:-0.1] [BMD Previous:0.839] [BMD % Change:0.4] *Indicates significant change from prior examination based on 95% confidence level. World Health Organization criteria for BMD interpretation classify patients as Normal (T-score at or above -1.0), Osteopenic (T-score between -1.0 and -2.5) or Osteoporotic (T-score at or below -2.5). LIMITATIONS AND MODIFICATION: None. FRACTURE RISK (FRAX SCORE): The ten year probability of (%): Major Osteoporotic Fracture: [15.1] Hip Fracture: [1.9] IMPRESSION: 1. Osteopenia (Low bone mass). 2. No significant change in bone mineral density since prior examination. 3. See below National Osteoporosis Foundation guidelines on when to potentially initiate pharmacologic therapy. Based on the National Osteoporosis Foundation Guidelines, pharmacologic treatment should be initiated in any of the following, unless clinical conditions suggest otherwise: * Any patient with prior fragility fracture of the hip or vertebrae. A spine fracture indicates 5X risk for subsequent spine fracture and 2X risk for subsequent hip fracture. * Osteoporosis (T-score <-2.5). * Postmenopausal women and men age 50 and older with low bone mass/osteopenia (T-score between -1.0 and -2.5) by DXA and 10-year major osteoporotic fracture greater than 20% or a 10-year probability of hip fracture greater than 3%. These fracture risks are supplied above in the FRAX score, if applicable. * Clinician judgement and/or patient preferences may indicate treatment for people with 10-year fracture probabilities above or below these levels. Dictated by: Dictated on workstation # [id number]
== END ==
LOC: RAD 08:30
PROVIDERS: ATTEND Internal Medicine
DX: M85.80 Other specified disorders of bone density and structure, unspecified site (principal); M81.0 Age-related osteoporosis without current pathological fracture; Z78.0 Asymptomatic menopausal state
CPT/HCPCS: 77080

== ENCOUNTER → 2021-05-09 | Outpatient (CLI) | payer MEDICARE, OTHER ==
--- NOTE | 2021-05-09 13:11 | Diagnostic Imaging Report ---
PROCEDURE: MRI lumbar spine. TECHNIQUE: Multiplanar, multisequence MRI of the lumbar spine was performed without contrast. DATE: May 09, 2021. COMPARISON: CT lumbar spine August 15, 2018. INDICATION: 70-year-old female, fall in February 2021. Low back pain. FINDINGS: There is a lumbar levoscoliosis. There is grade 1 anterolisthesis of L4 on L5 measuring 5 mm. There is no evidence of a diffuse marrow infiltrating or replacing process. There is a prior compression deformity of T12 with kyphoplasty changes at this level. There is retropulsion of the posterior superior aspect of T12 by approximately 4 mm beyond the expected posterior vertebral body margin with associated mild spinal stenosis. There is an acute fracture of the L2 vertebral body with roughly 35% height loss and retropulsion of the posterior inferior aspect of the L2 vertebral body by 5 mm with associated severe spinal stenosis. The visualized portions of the spinal cord are unremarkable in signal. The conus medullaris terminates at the level of L1-L2. There are T2 hyperintense renal lesions not well evaluated on noncontrast MRI. L1-L2: There is no disc bulge. There are mild right facet degenerative changes without ligamentum flavum hypertrophy. There is no foraminal narrowing. There is no spinal canal stenosis. L2-L3: There is a diffuse disc bulge. There are facet degenerative changes with mild ligamentum flavum hypertrophy. There is prominence of the posterior epidural fat. There is mild right and severe left foraminal narrowing. There is severe spinal canal stenosis. L3-L4: There is mild diffuse disc bulge with moderate narrowing of the right lateral recess. There are mild right facet degenerative changes without ligamentum flavum hypertrophy. There is moderate right and mild to moderate left foraminal narrowing. There is no spinal canal stenosis. L4-L5: There is uncovering of the disc relating to the anterolisthesis as well as mild diffuse disc bulge. There are bilateral facet degenerative changes. There is severe right and mild left foraminal narrowing. There is no spinal canal stenosis. L5-S1: There is no disc bulge. There are advanced bilateral facet degenerative changes without ligamentum flavum hypertrophy. There is mild bilateral foraminal narrowing. There is no spinal canal stenosis. IMPRESSION: 1. Acute fracture of the L2 vertebral body with 35% height loss and retropulsion of the posterior inferior endplate with severe spinal stenosis. No fracture involvement of the posterior elements. 2. Multilevel disc and facet degenerative changes of the lumbar spine as described level by level above. 3. Remote prior compression deformity of T12 as discussed above. Dictated by: Dictated on workstation # [id number]
== END ==
LOC: RAD 09:46
PROVIDERS: ATTEND Nurse Practitioner Family
DX: M48.56XA Collapsed vertebra, not elsewhere classified, lumbar region, initial encounter for fracture (principal); M47.816 Spondylosis without myelopathy or radiculopathy, lumbar region; M47.817 Spondylosis without myelopathy or radiculopathy, lumbosacral region; M51.26 Other intervertebral disc displacement, lumbar region; M24.28 Disorder of ligament, vertebrae; M48.061 Spinal stenosis, lumbar region without neurogenic claudication; M48.07 Spinal stenosis, lumbosacral region; M43.8X4 Other specified deforming dorsopathies, thoracic region
CPT/HCPCS: 72148

== ENCOUNTER 2021-12-24 05:32 | Outpatient (CLI) | payer MEDICARE, OTHER ==
[~2021-12-24] VITALS: Ht 167.7 cm; Wt 81.8 kg
[~2021-12-24 05:32] MED LIST changes: -ALPR.25T; +ALPR.25T PO; -AMT50T; +AMT50T PO; +CYCL10TA25 PO; -CYCL10TA9 PO; -ZOLP5TAB7; +ZOLP5TAB7 PO
[2022-01-01] MEDS ORDERED: GABA300C PO (10:44)
[2022-01-01] MEDS ORDERED: LOSA50TA63 PO (10:44)
== END 2022-01-01 10:53 | disposition home or self-care (01) ==
LOC: PREOP 05:32
PROVIDERS: ATTEND Specialist
DX: Z01.818 Encounter for other preprocedural examination (principal)

== ENCOUNTER 2022-01-02 11:26 | Day surgery (SDC) | payer MEDICARE, OTHER ==
[~2022-01-02] VITALS: Ht 167.7 cm; Wt 81.8 kg
[~2022-01-02 11:26] MED LIST changes: +GABA300C PO; +LOSA50TA63 PO
[2022-01-02] MEDS ORDERED: POVIDONE (BETADINE) OPHTH SOLN 5% 30 ML OP ONE (12:00)
[2022-01-02] MEDS ORDERED: MOXIFLOXACIN OPHTH SOLN 5 MG/ML 0.3 ML SYRINGE OP ONE (12:00)
[2022-01-02] MEDS ORDERED: TIMOLOL MALEATE 0.5% 5 ML (TIMOPTIC) BTL OU PRN (12:00)
[2022-01-02] MEDS ORDERED: LIDOCAINE PF 1% 2 ML VIAL IR PRN (12:00)
[2022-01-02] MEDS: TETRACAINE 0.5% OPHTH SOLN 4 ML BTL (SINGLE DOSE ONLY) OU PRN ×4 (12:03→12:21)
[2022-01-02] MEDS: TROPICAMIDE 1% OPH SOLN (MYDRIACYL) 15 ML BTL OP SCH ×3 (12:11→12:21)
[2022-01-02] MEDS: PHENYLEPHRINE 10% OPHTH (NEO-SYN) 5 ML BTL OU SCH ×3 (12:11→12:21)
[2022-01-02 12:15] VITALS: BP 165/90
[2022-01-02] MEDS ORDERED: MIDAZOLAM 2 MG/2 ML (VERSED) VIAL ONE (12:58)
[2022-01-02] MEDS ORDERED: acetaZOLAMIDE ER 500 MG CAP (DIAMOX SEQUELS) PO ONE (13:15)
--- NOTE | 2022-01-02 13:21 | Ophthalmologist Pre-Op Note ---
Pre-Operative Progress Note H&P Reviewed The H&P was reviewed, patient examined and no changes noted. Date H&P Reviewed: January 02, 2022 Time H&P Reviewed: 13:00 Pre-Op Dx Cataract, Left Eye RAYMON ULLOA MD January 02, 2022 13:21
--- NOTE | 2022-01-02 13:21 | Ophthalmology Operative Report ---
Cataract removal/placement IOL PREOPERATIVE DIAGNOSIS: Cataract Left Eye POSTOPERATIVE DIAGNOSIS: Cataract Left Eye PROCEDURE: Cataract removal and placement of posterior chamber implant, left eye SURGEON: Dinesh Ulloa ANESTHESIA: Topical with sedation COMPLICATIONS: None ESTIMATED BLOOD LOSS: Minimal DESCRIPTION OF PROCEDURE: After proper informed consent was obtained, the patient, a 71 female, was taken to the Operating Room and the left eye was anesthetized with tetracaine. The left eye was then prepped and draped in the usual manner. A wire lid speculum was placed. A paracentesis was made at the left hand position. Preservative free lidocaine was injected into the anterior chamber followed by viscoelastic. A clear corneal incision was made in the temporal position. A capsulorrhexis was preformed and the central nuclear and cortical material were removed. The posterior capsule was polished and an Jaylon 25.5 AU00T0 was placed into the capsular bag. The residual viscoelastic was aspirated and balanced saline solution was injected into the anterior chamber. Moxifloxacin was injected into the anterior chamber. The wound was checked and found to be water tight. The patient tolerated the procedure well without complications. DINESH ULLOA MD January 02, 2022 13:21
[2022-01-02 13:24] VITALS: BP 165/75
--- NOTE | 2022-01-02 14:10 | Anesthesia-General Post-Op ---
MAC Patient Condition Mental Status/LOC: Same as Preop Cardiovascular: Satisfactory Nausea/Vomiting: Absent Respiratory: Satisfactory Pain: Controlled Complications: Absent Post Op Complications Complications None Follow Up Care/Instructions Patient Instructions None needed. Anesthesiology Discharge Order Discharge Order Patient is doing well, no complaints, stable vital signs, no apparent adverse anesthesia problems. No complications reported per nursing. HAILEY PERKINS CRNA January 02, 2022 14:10
== END 2022-01-02 13:31 | disposition home or self-care (01) ==
LOC: SDC 11:26
PROVIDERS: ATTEND Specialist
DX: H25.9 Unspecified age-related cataract (principal); Z87.891 Personal history of nicotine dependence
CPT/HCPCS: 66984; V2632

== ENCOUNTER 2022-01-12 10:24 | Day surgery (SDC) | payer MEDICARE, OTHER ==
[~2022-01-12] VITALS: Ht 167.7 cm; Wt 81.8 kg
[2022-01-12 10:20] VITALS: BP 142/69
[2022-01-12] MEDS ORDERED: MIDAZOLAM 2 MG/2 ML (VERSED) VIAL ONE (10:27)
[2022-01-12] MEDS ORDERED: TIMOLOL MALEATE 0.5% 5 ML (TIMOPTIC) BTL OU PRN (10:30)
[2022-01-12] MEDS ORDERED: POVIDONE (BETADINE) OPHTH SOLN 5% 30 ML OP ONE (10:30)
[2022-01-12] MEDS ORDERED: MOXIFLOXACIN OPHTH SOLN 5 MG/ML 0.3 ML SYRINGE OP ONE (10:30)
[2022-01-12] MEDS ORDERED: LIDOCAINE PF 1% 2 ML VIAL IR PRN (10:30)
[2022-01-12] MEDS: TETRACAINE 0.5% OPHTH SOLN 4 ML BTL (SINGLE DOSE ONLY) OU PRN ×3 (10:31→10:38)
[2022-01-12] MEDS: TROPICAMIDE 1% OPH SOLN (MYDRIACYL) 15 ML BTL OP SCH ×3 (10:32→10:42)
[2022-01-12] MEDS: PHENYLEPHRINE 10% OPHTH (NEO-SYN) 5 ML BTL OU SCH ×3 (10:33→10:42)
--- NOTE | 2022-01-12 11:10 | Ophthalmologist Pre-Op Note ---
Pre-Operative Progress Note H&P Reviewed The H&P was reviewed, patient examined and no changes noted. Date H&P Reviewed: January 12, 2022 Time H&P Reviewed: 11:09 Pre-Op Dx Cataract, Right Eye RAYMON ULLOA MD January 12, 2022 11:10
--- NOTE | 2022-01-12 11:34 | Ophthalmology Operative Report ---
Cataract removal/placement IOL PREOPERATIVE DIAGNOSIS: Cataract Right Eye POSTOPERATIVE DIAGNOSIS: Cataract Right Eye PROCEDURE: Cataract removal and placement of posterior chamber implant, right eye SURGEON: Dinesh Ulloa ANESTHESIA: Topical with sedation COMPLICATIONS: None ESTIMATED BLOOD LOSS: Minimal DESCRIPTION OF PROCEDURE: After proper informed consent was obtained, the patient, a 71 female, was taken to the Operating Room and the right eye was anesthetized with tetracaine. The right eye was then prepped and draped in the usual manner. A wire lid speculum was placed. A paracentesis was made at the left hand position. Preservative free lidocaine was injected into the anterior chamber followed by viscoelastic. A clear corneal incision was made in the temporal position. A capsulorrhexis was preformed and the central nuclear and cortical material were removed. The posterior capsule was polished and Jaylon 25.5 AU00T0 IOL was placed into the capsular bag. The residual viscoelastic was aspirated and balanced saline solution was injected into the anterior chamber. Moxifloxacin was injected into the anterior chamber. The wound was checked and found to be water tight. The patient tolerated the procedure well without complications. DINESH ULLOA MD January 12, 2022 11:34
[2022-01-12 11:44] VITALS: BP 136/83
[2022-01-12] MEDS ORDERED: acetaZOLAMIDE ER 500 MG CAP (DIAMOX SEQUELS) PO ONE (12:15)
--- NOTE | 2022-01-12 13:41 | Anesthesia-General Post-Op ---
MAC Patient Condition Mental Status/LOC: Same as Preop Cardiovascular: Satisfactory Nausea/Vomiting: Absent Respiratory: Satisfactory Pain: Controlled Complications: Absent Post Op Complications Complications None Follow Up Care/Instructions Patient Instructions None needed. Anesthesiology Discharge Order Discharge Order Patient is doing well, no complaints, stable vital signs, no apparent adverse anesthesia problems. No complications reported per nursing. SHAYLA MOODY CRNA January 12, 2022 13:41
== END 2022-01-12 11:45 | disposition home or self-care (01) ==
LOC: SDC 10:24
PROVIDERS: ATTEND Specialist
DX: H25.9 Unspecified age-related cataract (principal); Z87.891 Personal history of nicotine dependence
CPT/HCPCS: 66984; V2632

== ENCOUNTER → 2023-06-28 | Outpatient (CLI) | payer MEDICARE, OTHER ==
[~2023-06-28] MED LIST changes: -TRIA1CAP4; +TRIA1CAP84
--- NOTE | 2023-06-28 12:11 | Diagnostic Imaging Report ---
PROCEDURE: US left lower extremity venous. TECHNIQUE: Multiple real-time grayscale images were obtained over the left lower extremity in various projections. Additional duplex Doppler and color Doppler images were also obtained. INDICATION: Left leg pain. There is no evidence of left lower extremity DVT. Left lower extremity DVT venous system shows normal compressibility with normal response to augmentation and Valsalva. No fluid collection or mass is detected. IMPRESSION: No evidence of left lower extremity DVT. Dictated by: Dictated on workstation # [id number]
== END ==
LOC: RAD 10:48
PROVIDERS: ATTEND Nurse Practitioner Family
DX: M79.89 Other specified soft tissue disorders (principal); L03.116 Cellulitis of left lower limb; M79.7 Fibromyalgia; K51.90 Ulcerative colitis, unspecified, without complications